=== PATIENT | male | born 1990 | race African-American/Black ===

== ENCOUNTER 2016-09-14 19:12 | Emergency (ER) ==
[2016-09-14 19:18] VITALS: BP 173/89
[2016-09-14] MEDS ORDERED: XYLOCAINE-MPF 1% 5 ML ONE (19:50)
[2016-09-14] MEDS ORDERED: XYLOCAINE-MPF 1% INJ ONE (19:55)
[2016-09-14] MEDS ORDERED: SEPTRA DS PO ONE (20:04)
--- NOTE | 2016-09-14 20:09 | PROVIDER DOCUMENTATION ---
HPI-General Adult - General Chief Complaint: Abscess Stated Complaint: ABSCESS Time Seen by Provider: 09/14/16 19:39 Source: patient Allergies/Adverse Reactions: Patient Allergies Allergy/AdvReac Type Severity Reaction Status Date / Time No Known Allergies Allergy Verified 09/14/16 19:45 Home Medications: Home Medication List Medication Instructions Recorded Confirmed Last Taken Type Sulfamethoxazole/Trimethoprim 1 each PO BID #14 tablet 09/14/16 Unknown Rx [Bactrim Ds Tablet] - History of Present Illness -Gen Adult Nature of Presenting Problems: Pt. is 25 yom that presents with c/o abscess to right cheek. Pt. reports symptoms for two days. Pt. denies any other symptoms. Location of Pain/Injury: reports: face. denies: head, mouth, neck, chest, upper extremity, hand(s), abdomen, back, pelvis, genitalia, lower extremity, feet, upper body, lower body, generalized Pain Radiation: reports: no radiation Quality of Pain: reports: aching. denies: burning, cramping, dull, fullness, indigestion, pressure, sharp, stabbing, tearing, throbbing, tightness Severity: reports: mild. denies: moderate, severe Onset/Duration: reports: gradual, 2 days ago Timing: reports: still present. denies: improving, gone now, resolved prior to arrival, intermittent, constant, changing over time, getting worse Context/Activities at Onset: reports: none. denies: recent emotional stress, recent physical stress, recent trauma history, possible bad food, cold exposure , out of country travel Modifying Factors: improves with: nothing Associated Symptoms: reports: rash. denies: anxiety, arm pain, back/neck pain, chest pain, constipation, cough, diaphoresis, diarrhea, dizziness, EENT symptoms , fatigue, fever/chills, genitourinary problems, headaches, heartburn, joint pain, loss of appetite, malaise, muscle aches, sinus congestion/drainage, nausea , seizure, shortness of breath, sensory/motor loss, pain with inspiration, swelling/mass in abdomen, syncope, vomiting, weakness, trouble walking Similar Symptoms Previously?: Yes Recently seen or treated by another doctor?: No Review of Systems - Adult - REVIEW OF SYSTEMS - ADULT Constitutional: reports: see HPI. denies: chills, fever, fatique Eyes: reports: see HPI. denies: dry eyes, blurred vision, double vision, redness Ears, Nose, Mouth & Throat: reports: see HPI. denies: ear discharge, ear pain, hearing loss, nose pain, loose teeth, mouth/dental pain, throat pain, throat swelling Cardiovascular: reports: see HPI. denies: chest pain, irregular heart rate, orthopnea, palpitations, syncope Respiratory: reports: see HPI. denies: chronic cough, cough, excessive sputum production, pleurisy, shortness of breath, wheezing Gastrointestinal: reports: see HPI. denies: abdominal pain, hematemesis, diarrhea, nausea, vomiting Genitourinary: reports: see HPI. denies: dysuria, hematuria, hesitency, urgency Musculoskeletal: reports: see HPI. denies: bone pain, joint pain, joint swelling, muscle aches, neck pain Integumentary: reports: see HPI, skin sores/ulcer (3 cm diameter fluctuant abscess to right cheek that is erythemic and tender to touch.). denies: hives, mole changes, rash, skin thickening Neurological: reports: see HPI. denies: ataxia, headache/migraines, numbness, paresthesia, seizure, tremors Psychiatric: reports: see HPI. denies: anxiety, depression, emotional problems , insomnia, panic attacks, suicidal thoughts Past History - Adult - PAST MEDICAL HISTORY-ADULT Review of Records: reports: Old Records Reviewed, Nursing Assessment Review, Medications Reviewed, Social history reviewed & non-contributory. - PRIOR SURGERIES/PROCEDURES Surgical/Procedure History: reports: none - PRIOR HOSPITALIZATIONS Prior Hospitalizations: reports: for other non-related - IMMUNIZATION STATUS Childhood Immunizations: See Nurse Assessment Flu Vaccine: See Nurse Assessment - FAMILY HISTORY Family History: reviewed, not pertinent - SOCIAL HISTORY Smoking: non-smoker Physical Exam-General - PHYSICAL EXAM-ADULT Initial Vital Signs Reviewed: Yes - CONSTITUTIONAL General Appearance: alert, mild distress, thin. negative: obese, anxious, lethargic, slow to respond, obtunded, combative - EYES Eyes: PERRL/EOMI, pink conjunctivae. negative: conjuctival exudate, scleral icterus, subconjunctival hemorrhage - HEAD, EARS, NOSE, MOUTH & THROAT HENMT: normocephalic/atraumatic, moist mucous membranes, normal ENT inspection. negative: angioedema, frontal tenderness, maxillary tenderness - NECK Neck: non-tender, full range of motion, supple, normal inspection. negative: lymphadenopathy, trachial deviation, thyromegaly - RESPIRATORY Respiratory: lungs clear, normal breath sounds. negative: crackles, rales, rhonchi, stridor, wheezing - CARDIOVASCULAR Cardiovascular: normal peripheral pulses, regular rate, rhythm, no edema, no JVD , no murmur. negative: extra beats, friction rub, irregularly irregular - CHEST (BREASTS) Chest/Breast: deferred - GASTROINTESTINAL (ABDOMEN) Abdominal Exam: normal bowel sounds, non tender, soft. negative: distended, guarding, rigid, rebound, tenderness, hernia, mass - GENITOURINARY Male Genitalia: deferred Rectal Exam: deferred Hemoccult Exam: deferred - LYMPHATIC Lymphatic: no adenopathy. negative: axilla node tender, cervical node tenderness - MUSCULOSKELETAL Back Exam: normal inspection, no CVA tenderness, no vertebral tenderness. negative: ecchymosis, swelling, vertebral tenderness Extremity: normal range of motion, non-tender, normal gait, normal inspection. negative: deformity, erythema, inflammation, swelling, tenderness Peripheral Pulses: radial (R): 2+, radial (L): 2+ - SKIN Integumentary: normal color, normal turgor, warm/dry, erythema (3 cm diameter fluctuant abscess to right cheek that is erythemic and tender to touch.), swelling (3 cm diameter fluctuant abscess to right cheek that is erythemic and tender to touch.), tenderness (3 cm diameter fluctuant abscess to right cheek that is erythemic and tender to touch.). negative: cyanosis, diaphoresis, ecchymosis, jaundice, mottled, pallor, petechiae, purpura, rash - NEUROLOGIC Neurologic: grossly normal, no motor/sensory deficits. negative: aphasia, facial droop, focal weakness, motor weakness, sensory deficit - PSYCHIATRIC Psych/Mental Status: normal mood/affect, normal thought content, normal thought process, oriented x 3. negative: anxious, paranoid, tearful Progress - PLAN OF CARE/RESULTS Progress/Plan/Lab Results: Discussed plan of care with patient. Patient agrees with plan and verbalizes understanding. Vital Signs Temp Pulse Resp BP 09/14/16 19:14 98.4 F 92 H 18 173/89 No Known Allergies Allergy (Verified 09/14/16 19:45) No Home Medications 09/14/16 Orders Category Date Time Status I and D Set up DIRECTED Care 09/14/16 19:56 Active Lidocaine 1% Pf [Xylocaine-Mpf 1%] Med 09/14/16 19:55 Discontinued 5 ml INJ NOW ONE Lidocaine 1% Pf [Xylocaine-Mpf 1%] 5 ml Med 09/14/16 19:50 Discontinued .ROUTE As Directed Sulfamethoxazole/Tmp D.s. [Septra Ds] Med 09/14/16 20:04 Discontinued 1 each PO NOW ONE Procedures - INCISION & DRAINAGE Site: Left cheek on face Abscess Type: Subcutaneous Prepped with: Hibiclens, Sterile Drapes Applied Anesthetic: 1%, Lidocaine/Xylocaine Volume of Anesthetic (ml's): 3 Blade Size: 11 Packing placed?: No Sterile Dressing Applied?: Yes Drainage: Large Amount, Purulent Departure - Departure Time of Disposition Order: 20:10 DIAGNOSIS: Abscess Disposition: HOME 01 Certified Medical Emergency: Emergent Condition: Stable Additional Instructions: Follow up with primary care physician Take medications as directed Keep clean with antibacterial soap Return to ED for any concerns or worsening of symptoms ED Follow Up Instructions: You have been treated by a care provider in the Emergency Department. These instructions are being provided to you so you can have an understanding of how to care for yourself upon discharge. Upon discharge from the Emergency Department, you are responsible for making arrangements for follow-up care by a physician of your choice. Take all prescribed medications as directed. Return to the Emergency Department immediately for any new or worsening symptoms. You may call the Physician Referral phone number at [phone] to obtain a list of Physicians who are taking new patients. Prescriptions: Sulfamethoxazole/Trimethoprim [Bactrim Ds Tablet] 1 each PO BID #14 tablet Attestation - Physician/ RAMON Attestation Patient care was provided by Advanced Practice Provider:: Yes Advanced Practice Provider:: Jose Rivero Advanced Practice Provider documentation review:: The Mid-level provider documentation, treatment plan and medical decision making was reviewed by the physician who agrees with all treatment and medical decision making by the MLP.
== END 2016-09-14 20:17 | disposition home or self-care (01) ==
LOC: P.ED 19:12
DX: L02.01 Cutaneous abscess of face (principal); R21 Rash and other nonspecific skin eruption